=== PATIENT | female | born 1990 | race Caucasian/White ===

== ENCOUNTER 2019-02-11 06:43 | Day surgery (SDC) | payer BC ==
[~2019-02-11 06:43] MED LIST: Lactated Ringers 1,000 ML IV SCH
--- NOTE | 2019-02-11 07:11 | PCM.PREANE ---
Preanesthetic Assessment - Anesthesia/Transfusion/Family Hx Anesthesia History: No Prior Anesthesia Family History of Anesthesia Reaction: No Transfusion History: No Prior Transfusion(s) - Review of Systems General: No Symptoms Pulmonary: No Symptoms Cardiovascular: No Symptoms Gastrointestinal: No Symptoms - Physical Assessment NPO Status Date: 02/10/19 Height: 5 ft 2.5 in Weight: 87.543 kg ASA Class: 2 Mental Status: Alert & Oriented x3 Airway Class: Mallampati = 2 Dentition: Reports: Normal Dentition ROM/Head Extension: Full Lungs: Clear to Auscultation, Normal Respiratory Effort Cardiovascular: Regular Rate, Regular Rhythm - Lab Values: Laboratory Last Values WBC 7.26 K/uL (4.0-11.0) 02/10/19 08:10 RBC 4.50 M/uL (4.30-5.90) 02/10/19 08:10 Hgb 13.2 g/dL (12.0-16.0) 02/10/19 08:10 Hct 39.6 % (36.0-46.0) 02/10/19 08:10 MCV 88.0 fL (80.0-98.0) 02/10/19 08:10 MCH 29.3 pg (27.0-32.0) 02/10/19 08:10 MCHC 33.3 g/dL (31.0-37.0) 02/10/19 08:10 RDW Std Deviation 44.9 fl (28.0-62.0) 02/10/19 08:10 RDW Coeff of Chris 14 % (11.0-15.0) 02/10/19 08:10 Plt Count 330 K/uL (150-400) 02/10/19 08:10 MPV 9.10 fL (7.40-12.00) 02/10/19 08:10 Nucleated RBC % 0.0 /100WBC 02/10/19 08:10 Nucleated RBCs # 0 K/uL 02/10/19 08:10 Urine HCG, Qual NEGATIVE (NEGATIVE) 02/10/19 08:10 Blood Type A POSITIVE 02/10/19 08:10 Antibody Screen NEGATIVE 02/10/19 08:10 - Allergies Allergies/Adverse Reactions: Allergies Allergy/AdvReac Type Severity Reaction Status Date / Time No Known Allergies Allergy Verified 02/08/19 09:23 - Blood Blood Available: No - Anesthesia Plan Pre-Op Medication Ordered: None - Acknowledgements Anesthesia Type Planned: General Anesthesia Pt an Appropriate Candidate for the Planned Anesthesia: Yes Alternatives and Risks of Anesthesia Discussed w Pt/Guardian: Yes Pt/Guardian Understands and Agrees with Anesthesia Plan: Yes Additional Comments: PMH: PCOS PLAN: get PreAnesthesia Questionnaire HEENT History: Reports: Other (See Below) Other HEENT History: wears glasses/contacts Cardiovascular History: Reports: Other (See Below) Other Cardiovascular History: elevated BP with Respiratory History: Reports: None Gastrointestinal History: Reports: Other (See Below) Other Gastrointestinal History: occasional heartburn Genitourinary History: Reports: None [employer] TECHNICIAN History: Reports: Polycystic Ovaries, Other OB/BYN History: 17 wks Musculoskeletal History: Reports: Other (See Below) Other Musculoskeletal History: scoliosis Neurological History: Reports: None Psychiatric History: Reports: Anxiety, Depression Endocrine/Metabolic History: Reports: Diabetes, Gestational, Obesity/BMI 30+ Other Endocrine/Metabolic History: gestationa diabetes Hematologic History: Reports: None Immunologic History: Reports: None Oncologic (Cancer) History: Reports: None Dermatologic History: Reports: None Other Dermatologic History: herpes - Infectious Disease History Infectious Disease History: Reports: Herpes - Past Surgical History Head Surgeries/Procedures: Reports: None HEENT Surgical History: Reports: None Cardiovascular Surgical History: Reports: None Respiratory Surgical History: Reports: None GI Surgical History: Reports: None Female Surgical History: Reports: None Endocrine Surgical History: Reports: None Neurological Surgical History: Reports: None Musculoskeletal Surgical History: Reports: None Oncologic Surgical History: Reports: None Dermatological Surgical History: Reports: None - SUBSTANCE USE Smoking Status *Q: Former Smoker Tobacco Use Within Last Twelve Months: No - HOME MEDS Home Medications: Home Meds Multivitamin [Multivitamins] 1 tab PO DAILY 02/08/19 [History] Norethindrone 0.35 mg PO DAILY 02/08/19 [History] PARoxetine [Paxil] 10 mg PO DAILY 02/08/19 [History] valACYclovir HCl [Valtrex] 500 mg PO DAILY 02/08/19 [History] - CURRENT (IN HOUSE) MEDS Current Meds: Current Medications Lactated Ringer's (Ringers, Lactated) 1,000 mls @ 125 mls/hr IV ASDIRECTED LAUREL
[2019-02-11] MEDS ORDERED: Lidocaine 2% 5 ML SDV ONE (07:28)
[2019-02-11] MEDS ORDERED: Propofol 200 MG/20 ML SDV ONE (07:29)
[2019-02-11] MEDS ORDERED: fentaNYL 100 MCG/2 ML SDV ONE (07:29)
[2019-02-11] MEDS ORDERED: Midazolam 1 MG/ML 2 ML SDV ONE (07:29)
[2019-02-11] MEDS ORDERED: Rocuronium 100 MG/10 ML Syringe ONE (07:29)
[2019-02-11] MEDS ORDERED: Dexamethasone 4 MG/ML 5 ML MDV ONE (07:30)
[2019-02-11] MEDS ORDERED: Metoclopramide 10 MG/2 ML SDV ONE (07:30)
[2019-02-11] MEDS ORDERED: Bupivacaine 0.25% 10 ML SDV ONE (07:41)
[2019-02-11] MEDS ORDERED: Ondansetron 4 MG/2 ML SDV ONE (08:40)
[2019-02-11] MEDS ORDERED: Ketorolac 30 MG/ML SDV ONE (08:40)
[2019-02-11] MEDS ORDERED: Promethazine 25 MG/ML SDV IM PRN (08:42)
[2019-02-11] MEDS ORDERED: Ondansetron 4 MG/2 ML SDV IVPUSH PRN (08:42)
[2019-02-11] MEDS ORDERED: Meperidine PF 25 MG/ML Syringe IV PRN (08:42)
[2019-02-11] MEDS ORDERED: fentaNYL 100 MCG/2 ML SDV IVPUSH PRN (08:42)
[2019-02-11] MEDS ORDERED: Glycopyrrolate 0.2 MG/ML SDV ONE (08:45)
[2019-02-11] MEDS ORDERED: Neostigmine Methylsulfate 1 MG/ML 5 ML Syringe ONE (08:45)
[2019-02-11] MEDS ORDERED: Octyl 2-Cyanoacrylate 1 Tube ONE (08:48)
[2019-02-11] MEDS ORDERED: Acetaminophen/HYDROcodone 325-5 MG Tab PO PRN (09:23)
--- NOTE | 2019-02-11 10:00 | PCM.POSTAN ---
POST ANESTHESIA ASSESSMENT - MENTAL STATUS Mental Status: Alert, Oriented - VITAL SIGNS Vital Signs: Last Vital Signs Temp 37.1 C 02/11/19 09:10 Pulse 62 02/11/19 09:45 Resp 10 L 02/11/19 09:45 BP 115/48 L 02/11/19 09:45 Pulse Ox 98 02/11/19 09:45 - RESPIRATORY Respiratory Status: Respiratory Rate WNL, Airway Patent, O2 Saturation Stable - CARDIOVASCULAR CV Status: Pulse Rate WNL, Blood Pressure Stable - GASTROINTESTINAL GI Status: No Symptoms - PAIN Pain Score: 3 - POST OP HYDRATION Hydration Status: Adequate & Stable
--- NOTE | 2019-02-11 10:40 | OR ---
SURGEON: Joe Lantigua MD DATE OF PROCEDURE: 02/11/2019 INDICATION: A 28-year-old, G1, P1, with persistent left-sided pelvic pain and suspected endometriosis, presenting for diagnostic laparoscopy and possible excision of any lesions. PREOPERATIVE DIAGNOSIS: Pelvic pain. POSTOPERATIVE DIAGNOSIS: Pelvic pain. PROCEDURE PERFORMED: Diagnostic laparoscopy. PRIMARY SURGEON: Dr. Joe Lantigua. OPERATIVE FINDINGS: Normal-appearing bilateral ovaries, fallopian tubes and uterus. No endometrial implants noted along the pelvic sidewall, cul-de-sac, or bladder serosa. Normal-appearing liver and gallbladder. EBL: 5 mL. DESCRIPTION OF THE PROCEDURE: Informed consent was obtained. Risks of procedure discussed, all questions were answered and consent signed. Patient was taken to the operating room. Preoperative antibiotics were not indicated. She underwent general anesthesia with no complications. Her legs were placed in dorsal lithotomy position and supported using stirrups, taking care to release all pressure points. She was prepped and draped in the usual sterile fashion. A straight catheter was used to empty the bladder. Bimanual exam with mobile and anteverted uterus, less than 6-week size. No adnexal masses were felt. Weighted speculum was placed in the posterior vagina. Vagina and cervix were normal appearing without lesion or masses. The anterior lip of cervix was grasped with an Allis clamp. A HUMI uterine manipulator was placed in the uterine cavity. Attention was then turned to the abdomen. 2cc of 0.25% bupivicaine was injected at the umbilicus. A 5-mm incision was made. Veress needle was used for entry. Intraperitoneal location was confirmed in the usual fashion. CO2 gas was initiated with low opening pressure, pneumoperitoneum was increased to 15 mmHg. The Optiview trocar was placed under visualization with the laparoscope. Intraperitoneal location was visually confirmed. No visceral or vascular injury was seen at the entry site. Another 5 mm trocar was placed at the right lower quadrant under laparoscopic visualization. An atraumatic grasper was used to sweep the bowel away from the pelvis. Survey of the abdomen noted normal-sized uterus, ovaries and fallopian tubes bilaterally. On careful inspection, there were no endometrial implants noted along the pelvic sidewall, cul-de-sac, or bladder serosa. There was no adhesions noted. Grossly normal- appearing liver and gallbladder. Pneumoperitoneum was then released and all instruments were removed. Skin incisions were closed using 4-0 Monocryl in a subcuticular fashion. Dermabond was placed over the incision. Uterine manipulator was removed. Sponge, lap, and instrument counts were correct. The patient was awakened from anesthesia in stable condition and taken to the recovery room. MATTHEW GARDNER /[id number] TRIP
--- NOTE | 2019-02-11 11:00 | PCM48HPAN ---
Post Anesthesia Note - EVALUATION WITHIN 48HRS OF ANESTHETIC Vital Signs in Normal Range: Yes Patient Participated in Evaluation: Yes Respiratory Function Stable: Yes Airway Patent: Yes Cardiovascular Function Stable: Yes Hydration Status Stable: Yes Pain Control Satisfactory: Yes Nausea and Vomiting Control Satisfactory: Yes Mental Status Recovered: Yes Vital Signs: Last Vital Signs Temp 97.9 F 02/11/19 10:10 Pulse 63 02/11/19 10:10 Resp 16 02/11/19 10:10 BP 125/77 02/11/19 10:10 Pulse Ox 97 02/11/19 10:10
[2019-02-11 14:45] VITALS: BP 130/74; PULSE 67
== END 2019-02-11 11:15 | disposition home or self-care (01) ==
LOC: MW.SDS 06:43
PROVIDERS: ATTEND Obstetrics & Gynecology
DX: R10.2 Pelvic and perineal pain (principal); E28.2 Polycystic ovarian syndrome; N76.0 Acute vaginitis; Z79.899 Other long term (current) drug therapy
CPT/HCPCS: 36415; 49320; 81025; 85027; 86850; 86900; 86901; A9270; J1100; J1885; J2001; J2250; J2405; J2704; J2765; J3010; J3490; J7120